=== PATIENT | female | born 1980 | race Caucasian/White ===

== ENCOUNTER 2018-10-11 17:42 | Emergency (ER) | payer MEDICAID, SELFPAY ==
[2018-10-11 17:43] VITALS: BP 97/74; PULSE 129; RESP 16; TEMP 36.4; O2SAT 98; BMI 26.4
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
[2018-10-11] MEDS: HYDROmorphone 1 MG/ML Syringe SC (18:59)
[2018-10-11 20:43] VITALS: BP 119/71; PULSE 80; RESP 16; O2SAT 97
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
[2018-10-11 21:02] VITALS: BP 121/81; PULSE 118; RESP 18; O2SAT 99
== END 2018-10-11 21:03 | disposition home or self-care (01) ==
LOC: ED 18:33
PROVIDERS: Emergency Provider Emergency Medicine
DX: M79.605 Pain in left leg (principal); V49.50XA Passenger injured in collision with unspecified motor vehicles in traffic accident, initial encounter; Z72.0 Tobacco use
CPT/HCPCS: 73590; 73610; 96372; 99284